=== PATIENT | male | born 1965 | race Caucasian/White ===

== ENCOUNTER 2016-04-24 09:00 | Emergency (ER) | payer OTHER ==
[2016-04-24] MEDS ORDERED: ONDANSETRON HCL/PF 4 MG/ 2ML VIAL IVP ONE (09:37)
[2016-04-24] MEDS ORDERED: 0.9 % SODIUM CHLORIDE 1,000 ML IV ONE (09:38)
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
[2016-04-24 09:53] LABS: BASOPHILS % 0.6 (0.0-1.5); EOSINOPHILS % 2.1 % (0.0-6.8); LYMPHOCYTES # 2.4 # k/uL (0.6-4.0); MEAN CORPUSCULAR HEMOGLOBIN 28.5 pg (28.0-34.0); MONOCYTES # 0.6 # k/uL (0.0-0.9); MONOCYTES % 5.7 % (0.0-11.0); NEUTROPHILS # 7.3 # k/uL (1.4-7.7)
[2016-04-24] MEDS ORDERED: 0.9 % SODIUM CHLORIDE 1,000 ML IV SCH (10:00)
[2016-04-24 10:06] LABS: eGFR (African) > 60; eGFR (Non-African) 57
[2016-04-24] MEDS ORDERED: HYDROmorphone HCL/PF 1 MG/ML DISP.SYRIN IVP ONE (10:07)
[2016-04-24 10:15] LABS: AMPHETAMINE NEGATIVE ng/mL (<1000); BARBITURATES NEGATIVE ng/mL (<300); CANNABINOIDS NON NEGATIVE ng/mL (<50); COCAINE NEGATIVE ng/mL (<150); METHAMPHETAMINE NEGATIVE ng/mL (<1000); METHYLENEDIOXYMETHAMPHETAMINE NEGATIVE ng/mL (<500)
[2016-04-24 11:02] VITALS: BP 159/89
[2016-04-27 10:38] LABS: CANNABINOIDS CONFIRMATION >150 ng/mL (<15)
== END 2016-04-24 10:45 | disposition home or self-care (01) ==
LOC: ED 09:00
DX: G89.29 Other chronic pain (principal); M25.552 Pain in left hip; M25.551 Pain in right hip
CPT/HCPCS: 80053; 80349; 80358; 80377; 85025; J1170; J2405; J7030; 96374; 99282; 99283; G0477; G0482; S1016

== ENCOUNTER 2016-04-30 22:16 | Emergency (ER) | payer OTHER ==
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
[2016-04-30 23:17] LABS: BASOPHILS % 0.4 (0.0-1.5); EOSINOPHILS % 6.1 % (0.0-6.8); LYMPHOCYTES # 2.3 # k/uL (0.6-4.0); MONOCYTES # 0.7 # k/uL (0.0-0.9); MONOCYTES % 7.8 % (0.0-11.0); NEUTROPHILS # 5.6 # k/uL (1.4-7.7)
[2016-04-30 23:22] LABS: eGFR (African) > 60; eGFR (Non-African) > 60
--- NOTE | 2016-05-01 00:03 | Diagnostic Imaging Report ---
Report Submission Date: Apr 30, 2016 11:41:34 PM DAIRY TECHNICIAN Patient ~ Study Name: TACO DUMONT ~ Date: Apr 30, 2016 11:27:24 PM DAIRY TECHNICIAN ~ Modality Type: CR Gender: M ~ Description: CHEST : 67 ~ Institution: [facility] Physician: JULY ESPAÑA ~ ~ ~ ~ Pa and lateral chest Clinical history :short of breath coughing Technique pa and lateral upright Findings: The lung bettencourt are clear. The lung bettencourt are hyperinflated. I see no hilar or mediastinal mass. There is no pleural effusion or lesion of the bony thorax other than thoracic spondylosis. Impression: Hyperinflation No acute infiltrate ~ Electronically signed on Apr 30, 2016 11:41:34 PM DAIRY TECHNICIAN by: Cheng MORGAN
[2016-05-01] MEDS ORDERED: methylPREDNISolone SOD SUCC 125 MG/2 ML VIAL IVP ONE (00:05)
[2016-05-01] MEDS ORDERED: IPRATROPIUM/ALBUTEROL SULFATE 3 ML AMPUL.NEB NEB ONE ×2 (00:05→00:06)
[2016-05-01] MEDS ORDERED: LEVOFLOXACIN 500 MG TABLET PO ONE ×2 (01:45)
[2016-05-01 01:59] VITALS: BP 109/61
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
== END 2016-05-01 01:49 | disposition home or self-care (01) ==
LOC: ED 22:16
DX: J20.9 Acute bronchitis, unspecified (principal)
CPT/HCPCS: 70450; 71020; 80053; 85025; 94640; J2930; 96372; 99283; S1016

== ENCOUNTER 2016-05-05 13:49 | Emergency (ER) | payer OTHER ==
[2016-05-05] MEDS ORDERED: BUDESONIDE 0.5MG/2ML AMPUL.NEB NEB ONE ×2 (13:59→14:06)
[2016-05-05] MEDS ORDERED: IPRATROPIUM/ALBUTEROL SULFATE 3 ML AMPUL.NEB NEB ONE ×2 (13:59→14:06)
[2016-05-05 14:08] LABS: APPEARANCE,URINE Clear (CLEAR); COLOR,URINE Yellow (YELLOW); OCCULT BLOOD,URINE Negative (NEGATIVE); PH URINE 8.5 (5.0 - 8.0); UROBILINOGEN URINE 0.2 Eu (0.2-1.0)
[2016-05-05] MEDS ORDERED: methylPREDNISolone SOD SUCC 125 MG/2 ML VIAL IVP ONE (14:08)
[2016-05-05] MEDS ORDERED: 0.9 % SODIUM CHLORIDE 1,000 ML IV ONE (14:23)
[2016-05-05] MEDS ORDERED: 0.9 % SODIUM CHLORIDE 1,000 ML IV SCH (14:30)
[2016-05-05 14:31] LABS: BASOPHILS % 0.3 (0.0-1.5); EOSINOPHILS % 4.8 % (0.0-6.8); LYMPHOCYTES # 0.8 # k/uL (0.6-4.0); MEAN CORPUSCULAR HEMOGLOBIN 29.8 pg (28.0-34.0); MONOCYTES # 0.5 # k/uL (0.0-0.9); MONOCYTES % 5.6 % (0.0-11.0)
[2016-05-05 14:44] LABS: eGFR (African) > 60; eGFR (Non-African) > 60
--- NOTE | 2016-05-05 15:27 | ED Physician Documentation ---
Dyspnea - HISTORIAN Historian: patient - HPI Stated Complaint: SOA, cough, fever Chief Complaint: Dyspnea Onset: days ago Duration: continues in ED Initiating Event: exposure to smoke Context: recent bronchitis Severity: mild Exacerbated By: exertion Associated Symptoms: productive cough (yellow sputum) Further Comments: no - ROS CONST: no problems EYES/ENT: none GI/: none NEURO/PSYCH: denies: headache MS/SKIN/LYMPH: none - PAST HX Lung Disease: COPD Cardiac Disease: none PE Risk Factors: none Surgeries/Procedures: none Other History: none Immunizations: referred to PCP Allergies/Adverse Reactions: Allergies Allergy/AdvReac Type Severity Reaction Status Date / Time No Known Allergies Allergy Verified 05/05/16 14:10 Home Medications: Ambulatory Orders Medication Instructions Recorded Methadone HCl [Methadone HCl] 10 mg PO BID 04/24/16 Albuterol Sulfate [Ventolin Hfa] 1 puff INH DIRECTED 04/30/16 Levofloxacin [Levaquin] 500 mg PO D #10 tablet 05/01/16 - SOCIAL HX Smoking History: cigarettes Alcohol Use: none Drug Use: marijuana - FAMILY HX Family History: no significant history - VITAL SIGNS Vital Signs: Vital Signs Temp Pulse Resp BP Pulse Ox 99.0 F 117 H 24 163/92 88 L 05/05/16 14:04 05/05/16 14:04 05/05/16 14:04 05/05/16 14:04 05/05/16 14:04 - REVIEWED ASSESSMENTS Nursing Assessment Reviewed: Yes Vitals Reviewed: Yes Progress - Results/Orders Results/Orders: cbc, cmp, ua, cxr, strep, flu a and b ordered - Progress Progress: pt. given 1 liter NS, 125 mg solu medrol, pulmicort 0.5 mg via nebulizer and duoneb via nebulizer in er. Critical Care Note - Critical Care Note Total Time (mins): 0 ED Results Lab/Radiology - Lab Results Lab Results: Lab Results 05/05/16 05/05/16 05/05/16 14:25 14:25 14:25 WBC RBC Hgb Hct MCV MCH MCHC RDW Plt Count Neut % (Auto) Lymph % (Auto) Mccone % (Auto) Eos % (Auto) Baso % (Auto) Neut # Lymph # Mccone # Eos # Baso # Reactive Lymphs % Reactive Lymphs # Sodium 135 mmol/L L mmol/L (136-145) Potassium 4.6 mmol/L mmol/L (3.5-5.0) Chloride 103 mmol/L mmol/L (98-110) Carbon Dioxide 32 mmol/L mmol/L (20-32) BUN 17 mg/dL mg/dL (10-26) Creatinine 1.0 mg/dL mg/dL (0.4-1.5) Estimated Creat Clear 118 Est GFR ( Amer) > 60 (60 - ) Est GFR (Non-Af Amer) > 60 (60 - ) Glucose 111 mg/dL H mg/dL (70-99) Calcium 9.2 mg/dL mg/dL (8.5-10.5) Total Bilirubin 0.3 mg/dL mg/dL (0.2-1.2) AST 18 U/L U/L (0-41) ALT 14 U/L U/L (0-45) Alkaline Phosphatase 94 U/L U/L (46-116) Total Protein 7.7 g/dL g/dL (6.0-8.5) Albumin 4.5 g/dL g/dL (3.0-5.5) Urine Color Urine Appearance Urine pH Ur Specific Eden Urine Protein Urine Ketones Urine Occult Blood Urine Nitrite Urine Bilirubin Urine Urobilinogen Ur Leukocyte Esterase Urine Glucose Influenza Type A Ag Negative (NEGATIVE) Influenza Type B Ag Negative (NEGATIVE) Group A Strep Screen Negative (NEGATIVE) 05/05/16 05/05/16 14:25 14:00 WBC 8.80 K/ul K/ul (4.00-12.00) RBC 5.05 M/ul M/ul (3.90-5.20) Hgb 15.0 g/dL g/dL (12.0-18.0) Hct 46.0 % % (37.0-53.0) MCV 91.1 fl fl (80.0-100.0) MCH 29.8 pg pg (28.0-34.0) MCHC 32.7 g/dL g/dL (30.0-36.0) RDW 13.8 % % (11.3-14.3) Plt Count 173 K/mm3 K/mm3 (130-400) Neut % (Auto) 79.6 % H % (39.0-79.0) Lymph % (Auto) 8.8 % L % (16.0-50.0) Mccone % (Auto) 5.6 % % (0.0-11.0) Eos % (Auto) 4.8 % % (0.0-6.8) Baso % (Auto) 0.3 (0.0-1.5) Neut # 7.0 # k/uL # k/uL (1.4-7.7) Lymph # 0.8 # k/uL # k/uL (0.6-4.0) Mccone # 0.5 # k/uL # k/uL (0.0-0.9) Eos # 0.4 # k/uL # k/uL (0.0-0.6) Baso # 0.0 # k/uL # k/uL (0.0-0.5) Reactive Lymphs % 0.9 % % (0.0-5.0) Reactive Lymphs # 0.1 # k/uL # k/uL (0.0-0.8) Sodium Potassium Chloride Carbon Dioxide BUN Creatinine Estimated Creat Clear Est GFR ( Amer) Est GFR (Non-Af Amer) Glucose Calcium Total Bilirubin AST ALT Alkaline Phosphatase Total Protein Albumin Urine Color Yellow (YELLOW) Urine Appearance Clear (CLEAR) Urine pH 8.5 (5.0 - 8.0) Ur Specific Eden 1.015 (1.010-1.030) Urine Protein Negative mg/dL mg/dL (NEGATIVE) Urine Ketones Negative mg/dL mg/dL (NEGATIVE) Urine Occult Blood Negative (NEGATIVE) Urine Nitrite Negative (NEGATIVE) Urine Bilirubin Negative (NEGATIVE) Urine Urobilinogen 0.2 Eu Eu (0.2-1.0) Ur Leukocyte Esterase Negative (NEGATIVE) Urine Glucose Negative mg/dL mg/dL (NEGATIVE) Influenza Type A Ag Influenza Type B Ag Group A Strep Screen - Radiology Radiology Impressions: cxr neg for pneumonia - Orders Orders: ED Orders Category Date Time Status Place Saline Lock/IV Now Care 05/05/16 14:08 Active CHEST 1 VIEW [RAD] Routine Exams 05/05/16 Ordered CBC/PLATELET/DIFF Routine Lab 05/05/16 14:25 Completed CMP Routine Lab 05/05/16 14:25 Completed GRP A STREP SCREEN Routine Lab 05/05/16 14:25 Completed INFLUENZA A&B Routine Lab 05/05/16 14:25 Completed THROAT CULTURE Routine Lab 05/05/16 14:25 Received URINALYSIS Routine Lab 05/05/16 14:00 Completed 0.9 % Sodium Chloride [Normal Saline] 1,000 ml Med 05/05/16 14:30 Ordered IV .Q1H Budesonide [Pulmicort] Med 05/05/16 13:59 Discontinued 0.5 mg NEB .STK-MED ONE Budesonide [Pulmicort] Med 05/05/16 14:06 Discontinued 0.5 mg NEB 1T ONE Ipratropium/Albuterol Sulfate [Duoneb] Med 05/05/16 13:59 Discontinued 3 ml NEB .STK-MED ONE Ipratropium/Albuterol Sulfate [Duoneb] Med 05/05/16 14:06 Discontinued 3 ml NEB NOW ONE methylPREDNISolone SOD SUCC [Solu-MEDROL] Med 05/05/16 14:08 Discontinued 125 mg IVP NOW ONE Dyspnea Physical Exam - EXAM General Appearance: alert, mild distress EENT: eye inspection normal, ENT inspection normal, pharynx normal, no signs of dehydration, NADIRA, no nystagmus, TM's nml Neck: nml inspection. No: lymphadenopathy Respiratory: no pain on inspiration, speaks full sentences, wheezes. No: retractions, accessory muscle use, rales, rhonchi, stridor, chest wall tenderness CVS: reg. rate & rhythm Abdomen: non-tender, no organomegaly, no distention Skin: color nml, no rash Extremities: non-tender, normal range of motion, no evidence of injury, no edema Neuro/Psych: oriented x3, CN's nml as tested, motor nml, sensation nml, mood/ affect nml Discharge Clincal Impression: COPD exacerbation Home Medications: Ambulatory Orders Methadone HCl [Methadone HCl] 10 mg PO BID 04/24/16 Albuterol Sulfate [Ventolin Hfa] 1 puff INH DIRECTED 04/30/16 Levofloxacin [Levaquin] 500 mg PO D #10 tablet 05/01/16 Comments: Discharged with a nebulizer, Pulmicort 0.5 mg via nebulizer bid, Albuterol 0.083 % via nebulizer q 4 hours, O2 at 2 liters NC, Prednison 60 mg - 0 mg taper over next 6 days. Condition: Stable Disposition: 01 HOME, SELF-CARE Decision to Admit: NO Decision Time: 03:20
[2016-05-05 15:32] VITALS: BP 183/85
--- NOTE | 2016-05-06 07:54 | Diagnostic Imaging Report ---
[facility] [address] [facility] [address] Report Submission Date: May 05, 2016 3:24:50 PM CERTIFIED PROFESSIONAL ERGONOMIST Patient Study Name: TACO DUMONT Date: May 05, 2016 3:03:28 PM CERTIFIED PROFESSIONAL ERGONOMIST Modality Type: CR Gender: M Description: CHEST : 67 Institution: [facility] Physician: CARLEY SERRANO Chest, 1 view. History: Cough. Findings: The heart size is normal. There is mild lingular segment infiltrate present. There is no pleural effusion or pneumothorax identified. Impression: 1. Mild lingular segment filtrate present. Electronically signed on May 05, 2016 3:24:50 PM CERTIFIED PROFESSIONAL ERGONOMIST by: Russel MORGAN
== END 2016-05-05 15:22 | disposition home or self-care (01) ==
LOC: ED 13:49
DX: J44.1 Chronic obstructive pulmonary disease with (acute) exacerbation (principal)
CPT/HCPCS: 71010; 80053; 81002; 85025; 87070; 87400; 87880; J2930; J7030; J7626; 94640; 96360; 96361; 96372; 99283; S1016

== ENCOUNTER 2016-09-21 15:43 | Outpatient (CLI) | payer OTHER ==
[2016-09-21 16:38] LABS: eGFR (African) > 60; eGFR (Non-African) > 60
== END 2016-09-21 15:44 ==
LOC: LAB 15:43
PROVIDERS: ATTEND Family Medicine
DX: R10.9 Unspecified abdominal pain (principal)
CPT/HCPCS: 36415; 80053; 85027

== ENCOUNTER 2017-08-19 09:34 | Emergency (ER) | payer OTHER ==
[2017-08-19 09:56] VITALS: BP 141/91
--- NOTE | 2017-08-19 09:58 | ED Physician Documentation ---
General Adult - HISTORIAN Historian: patient - HPI Chief Complaint: Skin Rash Additional Information: Patient states that he started to have some itching (burnign stinging) in the left posterior chest wall and then developed some bumps. Has been scratching them. Has some anterior chest discomfort along with it. No lesions there. No precipitating or modifying factors noted. Has had chicken pox in the past. No other skin rash noted. Itcing started about 5 days ago. Two days later developed the bumbs. Onset: days ago - ROS CONST: no problems. denies: fever, chills - PAST HX Past History: COPD, hypertension, other (chronic back pain, chronic Hep C,) Other History: other (gout) Surgeries/Procedures: other (partial colectomy, hip surgery) Immunizations: UTD Allergies/Adverse Reactions: Allergies Allergy/AdvReac Type Severity Reaction Status Date / Time No Known Allergies Allergy Verified 08/19/17 09:48 Home Medications: Ambulatory Orders Medication Instructions Recorded Clonazepam [Clonazepam] 1 mg PO QID 08/19/17 Oxycodone HCl [Roxicodone] 15 mg PO QID 08/19/17 - SOCIAL HX Smoking History: greater than 1 pack/day Alcohol Use: none Drug Use: none - FAMILY HX Family History: No - VITAL SIGNS Vital Signs: Vital Signs Temp Pulse Resp BP Pulse Ox 183/85 05/05/16 15:22 - REVIEWED ASSESSMENTS Nursing Assessment Reviewed: Yes Vitals Reviewed: Yes General Adult Physical Exam - PHYSICAL EXAM GENERAL APPEARANCE: mild distress NECK: normal inspection, thyroid normal. No: lymphadenopathy RESPIRATORY: no resp distress, chest non-tender, wheezes (mild expiratory) CVS: reg rate & rhythm, heart sounds normal, equal pulses, no murmur, no gallop SKIN: other (cluster of 10 erythematous bumps with small denuded tops, about 8mm in diameter each. Feww scattered lesion along the later chest wall area on the left) EXTREMITIES: non-tender NEURO: oriented X3, mood/affect nml, cognition normal Discharge Clincal Impression: Shingles Referrals: Presley Dempsey MD [Primary Care Provider] - 2 Days Additional Instructions: You possibly can be contagious as we discussed. Take precautions if around small children. Watch for secondary infection. Rash may take 1-2 weeks to clear. Condition: Stable Disposition: 01 HOME, SELF-CARE Decision to Admit: NO Date of Decison to Admit: 08/19/17 Decision Time: 09:59
== END 2017-08-19 10:07 | disposition home or self-care (01) ==
LOC: ED 09:34
DX: B02.9 Zoster without complications (principal)

== ENCOUNTER 2017-09-25 13:37 | Observation (INO) | payer OTHER ==
[2017-09-25] MEDS ORDERED: 0.9 % SODIUM CHLORIDE 1,000 ML IV ONE ×3 (13:58→16:34)
[2017-09-25] MEDS ORDERED: ONDANSETRON HCL 4 MG TAB.RAPDIS ONE (13:58)
[2017-09-25 14:16] LABS: BASOPHILS % 0.4 (0.0-1.5); EOSINOPHILS % 0.8 % (0.0-6.8); MEAN CORPUSCULAR HEMOGLOBIN 29.4 pg (28.0-34.0); MEAN CORPUSCULAR VOLUME 88.7 fl (80.0-100.0); MONOCYTES % 5.5 % (0.0-11.0); NEUTROPHILS # 10.4 # k/uL (1.4-7.7)
--- NOTE | 2017-09-25 14:22 | ED Physician Documentation ---
General Adult - HISTORIAN Historian: patient - HPI Stated Complaint: nausea, vomiting Chief Complaint: General Adult Additional Information: Nausea and vomiting that began 09/22. Hasn't urinated in more than 24 hours. Drinking Pedialyte, then has retching. No emesis today. No fever. Has intermittent "all over" muscle cramps. Nause improved since Zofran ODT in ER. - ROS CONST: denies: fever - PAST HX Past History: COPD, other (ARF, CRF, hip surgeries and chronic pain) Allergies/Adverse Reactions: Allergies Allergy/AdvReac Type Severity Reaction Status Date / Time No Known Allergies Allergy Verified 09/25/17 15:52 Home Medications: Ambulatory Orders Medication Instructions Recorded Clonazepam [Clonazepam] 1 mg PO BID 08/19/17 Oxycodone HCl [Roxicodone] 15 mg PO QID 08/19/17 Lisinopril [Prinivil] 20 mg PO DAILY 09/25/17 - SOCIAL HX Smoking History: cigarettes - FAMILY HX Family History: No - VITAL SIGNS Vital Signs: Vital Signs Temp Pulse Resp BP Pulse Ox 141/91 08/19/17 10:07 - REVIEWED ASSESSMENTS Nursing Assessment Reviewed: Yes Vitals Reviewed: Yes Progress - Progress Progress: 1802, discussed with Dr. Mtz. Will ad branden pt to obs. for overnight more gradual rehydration. ED Results Lab/Radiology - Lab Results Lab Results: Lab Results 09/25/17 14:10 WBC 13.23 K/ul H K/ul (4.00-12.00) RBC 6.07 M/ul H M/ul (3.90-5.20) Hgb 17.9 g/dL g/dL (12.0-18.0) Hct 53.9 % H % (37.0-53.0) MCV 88.7 fl fl (80.0-100.0) MCH 29.4 pg pg (28.0-34.0) MCHC 33.2 g/dL g/dL (30.0-36.0) RDW 14.0 % % (11.3-14.3) Plt Count 259 K/mm3 K/mm3 (130-400) Neut % (Auto) 78.7 % % (39.0-79.0) Lymph % (Auto) 13.7 % L % (16.0-50.0) [place] % (Auto) 5.5 % % (0.0-11.0) Eos % (Auto) 0.8 % % (0.0-6.8) Baso % (Auto) 0.4 (0.0-1.5) Neut # (Auto) 10.4 # k/uL H # k/uL (1.4-7.7) Lymph # (Auto) 1.8 # k/uL # k/uL (0.6-4.0) [place] # (Auto) 0.7 # k/uL # k/uL (0.0-0.9) Eos # (Auto) 0.1 # k/uL # k/uL (0.0-0.6) Baso # (Auto) 0.1 # k/uL # k/uL (0.0-0.5) Reactive Lymphs % 0.9 % % (0.0-5.0) Reactive Lymphs # 0.1 # k/uL # k/uL (0.0-0.8) - Orders Orders: ED Orders Category Date Time Status Place IV Lock 1T Care 09/25/17 13:58 Active CBC/PLATELET/DIFF Routine Lab 09/25/17 14:10 Completed CMP Routine Lab 09/25/17 14:10 Received LIPASE Stat Lab 09/25/17 14:10 Received URINALYSIS Routine Lab 09/25/17 Ordered 0.9 % Sodium Chloride [Normal Saline] 1,000 ml Med 09/25/17 13:58 Active IV Q1H Ondansetron HCl Rapdis [Zofran Odt] Med 09/25/17 13:58 Discontinued 4 mg .ROUTE .STK-MED ONE General Adult Physical Exam - PHYSICAL EXAM GENERAL APPEARANCE: moderate distress EENT: eye inspection normal, ENT inspection normal, pharynx normal, dry mucous membranes NECK: normal inspection, supple RESPIRATORY: breath sounds normal, rales CVS: reg rate & rhythm ABDOMEN: soft, normal bowel sounds, no distension, non-tender BACK: normal inspection, no CVA tenderness, other (no vertebral tenderness) SKIN: warm/dry, normal color EXTREMITIES: normal range of motion (gait and stance), no evidence of injury NEURO: CN's nml as tested, motor nml, sensation nml, cognition normal Discharge Clincal Impression: Dehydration Acute renal failure (ARF) Qualifiers: Acute renal failure type: unspecified Qualified Code(s): N17.9 - Acute kidney failure, unspecified Condition: Fair Disposition: 09 ADMITTED INPATIENT Decision to Admit: [id number] Decision Time: 18:02
[2017-09-25] MEDS ORDERED: ONDANSETRON HCL 4 MG TAB.RAPDIS PO ONE (14:23)
[2017-09-25 14:29] LABS: eGFR (African) 20; eGFR (Non-African) 16
[2017-09-25] MEDS ORDERED: PROMETHAZINE HCL 25 MG in 0.9 % SODIUM CHLORIDE 50 ML IV ONE (15:04)
[2017-09-25] MEDS ORDERED: PROMETHAZINE HCL 25 MG/ML VIAL ONE (15:11)
[2017-09-25] MEDS ORDERED: 0.9 % SODIUM CHLORIDE 100 ML IV ONE (15:12)
[2017-09-25] MEDS ORDERED: oxyCODONE/ACETAMINOPHEN 5/325 TABLET PO ONE (16:39)
[2017-09-25] MEDS ORDERED: LORazepam 1 MG TABLET PO PRN (19:47)
[2017-09-25] MEDS: 0.9 % SODIUM CHLORIDE 1,000 ML IV SCH (20:38)
[2017-09-25] MEDS: oxyCODONE HCL 5 MG TABLET PO SCH (20:39)
[2017-09-25] MEDS ORDERED: 0.9 % SODIUM CHLORIDE 1,000 ML IV SCH (21:49)
[2017-09-25 23:50] VITALS: BMI 28.8
[2017-09-26] MEDS ORDERED: clonazePAM 0.5 MG TABLET PO ONE ×2 (00:04→09:00)
[2017-09-26] MEDS: oxyCODONE HCL 5 MG TABLET PO SCH ×2 (00:05→06:10)
[2017-09-26] MEDS: clonazePAM 1 MG TABLET PO SCH ×2 (00:05→08:51)
[2017-09-26] MEDS: 0.9 % SODIUM CHLORIDE 1,000 ML IV SCH ×2 (02:40→09:44)
[2017-09-26] MEDS ORDERED: LISINOPRIL 20 MG TABLET PO SCH (09:00)
[2017-09-26 11:05] LABS: eGFR (African) > 60; eGFR (Non-African) > 60
[2017-09-26 11:52] VITALS: BP 127/64
[2017-09-26 14:02] LABS: APPEARANCE,URINE CLEAR (CLEAR); COLOR,URINE AMBER (YELLOW); OCCULT BLOOD,URINE 1+ (NEGATIVE); UROBILINOGEN URINE 0.2 Eu (0.2-1.0)
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
--- NOTE | 2017-09-30 12:06 | Discharge Summary ---
DATE OF ADMISSION: September 25, 2017 DATE OF DISCHARGE: September 26, 2017 DIAGNOSES ON THIS HOSPITALIZATION: 1. Acute renal failure. 2. Dehydration. SUMMARIZATION OF ADMISSION HISTORY AND PHYSICAL: This is a 51-year-old male who [place] and had begun to feel progressively more ill. Two days before admission, he became nauseated and began to have quite a bit of vomiting and was having difficulty keeping fluids down. He came to the emergency room because of continued weakness and nausea and was noted to be in acute renal failure with a BUN of 43 and creatinine of 4.10. After 3 liters of fluids in the ER, his BUN came down to 40 and creatinine came down to 3.0 and he has been on fluids all evening. Unfortunately, they were unable to draw labs on him. We are awaiting for those labs to come back and providing that those continue to improve, he will discharged to home with continuation of his current medications. CONDITION ON DISCHARGE: He is discharged to home in markedly improved condition. DISCHARGE INSTRUCTIONS: Follow up with Dr. Dempsey in 2 weeks. EDDIE
== END 2017-09-26 11:52 | disposition home or self-care (01) ==
LOC: ED 13:37 → INTOOBSV 18:23 → SOUTH 18:23
PROVIDERS: ADMIT Family Medicine; ATTEND Family Medicine
DX: E86.0 Dehydration (principal); N17.9 Acute kidney failure, unspecified
CPT/HCPCS: 80048; 80053; 81002; 83690; 85025; 96360; 96361; 99284; A9270; G0378; J2550; J7030; 99217; G0379; S1016

== ENCOUNTER 2017-10-05 13:44 | Outpatient (CLI) | payer OTHER ==
[2017-10-05 14:34] LABS: eGFR (African) > 60; eGFR (Non-African) > 60
== END 2017-10-05 13:45 ==
LOC: LAB 13:44
PROVIDERS: ATTEND Family Medicine
DX: E86.0 Dehydration (principal)
CPT/HCPCS: 36415; 80048

== ENCOUNTER 2017-10-29 10:20 | Inpatient (IN) | payer OTHER ==
[2017-10-29] MEDS ORDERED: 0.9 % SODIUM CHLORIDE 1,000 ML IV ONE ×3 (10:36→11:16)
[2017-10-29] MEDS ORDERED: fentaNYL CITRATE/PF 100 MCG/ 2ML AMP IVP ONE (10:39)
[2017-10-29 10:47] LABS: BASOPHILS % 0.5 (0.0-1.5); EOSINOPHILS % 1.2 % (0.0-6.8); MEAN CORPUSCULAR HEMOGLOBIN 30.6 pg (28.0-34.0); MEAN CORPUSCULAR VOLUME 90.3 fl (80.0-100.0); MONOCYTES % 3.7 % (0.0-11.0); NEUTROPHILS # 10.6 # k/uL (1.4-7.7)
[2017-10-29] MEDS ORDERED: MORPHINE SULFATE 4 MG/ML PREFILLED SYR IVP ONE (10:54)
[2017-10-29] MEDS ORDERED: LORazepam 2 MG/ML VIAL IVP ONE (10:54)
[2017-10-29 11:03] LABS: eGFR (African) > 60; eGFR (Non-African) 57
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
--- NOTE | 2017-10-29 11:40 | Diagnostic Imaging Report ---
MAEGAN DINERO (LAB AID) - ER [facility] [address] [facility].[address] [address] Report Submission Date: Oct 29, 2017 11:29:56 AM CDT Patient Study Name: TACO DUMONT Date: Oct 29, 2017 11:07:36 AM CDT Modality Type: DX Gender: M Description: CHEST : 67 Institution: [facility] Physician: MAEGAN DINERO (LAB AID) - ER PA and lateral chest Clinical history: Cough. History of COPD. Findings: Examination of the chest in PA and lateral views demonstrates lungs to be hyperinflated but clear. The cardiovascular and mediastinal silhouettes are within normal limits. Monitor leads superimpose the chest. Impression: 1. Hyperinflation. 2. No active disease. Electronically signed on Oct 29, 2017 11:29:56 AM CDT by: Ashok MORGAN
[2017-10-29] MEDS ORDERED: ONDANSETRON HCL/PF 4 MG/ 2ML VIAL ONE (11:55)
[2017-10-29] MEDS ORDERED: ONDANSETRON HCL/PF 4 MG/ 2ML VIAL IVP ONE (11:56)
[2017-10-29] MEDS ORDERED: PROMETHAZINE HCL 25 MG/ML VIAL IM ONE (12:00)
[2017-10-29] MEDS: 0.9 % SODIUM CHLORIDE 1,000 ML IV SCH (14:20)
[2017-10-29 14:24] VITALS: BMI 29.6
--- NOTE | 2017-10-29 16:48 | Diagnostic Imaging Report ---
MAEGAN DINERO (COSMETOLOGIST APPRENTICE) - ER [facility] [address] [facility] [address] [place], [place]. [address] Report Submission Date: Oct 29, 2017 11:51:36 AM CDT Patient Study Name: TACO DUMONT Date: Oct 29, 2017 11:28:39 AM CDT Modality Type: CT\SR Gender: M Description: CT ABD PELVIS W/O CO : 67 Institution: [facility] Physician: MAEGAN DINERO (COSMETOLOGIST APPRENTICE) - ER CT of abdomen and pelvis without contrast Clinical history: Abdominal pain and nausea for 3 days. Technique: CT of the abdomen and pelvis is performed without oral or intravenous administration of contrast. Sagittal and coronal reconstructions were performed by the technologist Findings: Visualized lung bases are clear. There is a small hiatal hernia. The liver and spleen demonstrate normal attenuation without focal defect. There are multiple noncalcified gallstones in the gallbladder. There is no gallbladder wall thickening or pericholecystic fluid. There is no pancreatic or adrenal abnormality. The kidneys are of normal size, shape and position. Appendix is visualized and is within normal limits. Vascular calcification is present in the abdominal aorta without evidence of aneurysm. There is no retroperitoneal mass or significant adenopathy. There is a left hip replacement with extensive metal artifact obscuring portions of the pelvis. Impression: 1. Small hiatal hernia. 2. Vascular calcification. 3. Cholelithiasis. 4. Negative appendix. 5. Left total hip replacement with metal artifact obscuring portions of the pelvis. Electronically signed on Oct 29, 2017 11:51:36 AM CDT by: Ashok MORGAN
[2017-10-29] MEDS ORDERED: oxyCODONE HCL 5 MG TABLET PO SCH (18:00)
[2017-10-29] MEDS ORDERED: ONDANSETRON HCL/PF 4 MG/ 2ML VIAL IVP PRN (18:21)
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
[2017-10-29] MEDS ORDERED: ONDANSETRON HCL 4 MG TAB.RAPDIS PO PRN (19:18)
[2017-10-29] MEDS ORDERED: oxyCODONE HCL 5 MG TABLET PO ONE (19:32)
[2017-10-29] MEDS ORDERED: NICOTINE 14mg PATCH.TD24 TD ONE (19:39)
[2017-10-29] MEDS ORDERED: clonazePAM 1 MG TABLET PO SCH (21:00)
[2017-10-29] MEDS: LORazepam 1 MG TABLET PO SCH (21:37)
[2017-10-30] MEDS: 0.9 % SODIUM CHLORIDE 1,000 ML IV SCH ×2 (00:18→07:53)
[2017-10-30] MEDS: oxyCODONE HCL 5 MG TABLET PO SCH ×2 (00:19→06:00)
[2017-10-30 06:21] LABS: APPEARANCE,URINE CLEAR (CLEAR); COLOR,URINE AMBER (YELLOW)
[2017-10-30 06:22] LABS: OCCULT BLOOD,URINE NEGATIVE (NEGATIVE); PH URINE 5.5 (5.0 - 8.0); UROBILINOGEN URINE 0.2 Eu (0.2-1.0)
[2017-10-30 06:23] LABS: OCCULT BLOOD,URINE NEGATIVE (NEGATIVE); PH URINE 5.5 (5.0 - 8.0); UROBILINOGEN URINE 0.2 Eu (0.2-1.0)
[2017-10-30 07:02] LABS: BASOPHILS % 0.4 (0.0-1.5); EOSINOPHILS % 2.2 % (0.0-6.8); MEAN CORPUSCULAR HEMOGLOBIN 31.1 pg (28.0-34.0); MEAN CORPUSCULAR VOLUME 89.3 fl (80.0-100.0); NEUTROPHILS # 6.7 # k/uL (1.4-7.7)
[2017-10-30 07:13] VITALS: BP 138/84
[2017-10-30 07:29] LABS: eGFR (African) > 60; eGFR (Non-African) > 60
--- NOTE | 2017-10-30 08:04 | Discharge Summary ---
Discharge Summary - Discharge Sumary History of Present Illness: Patient is a 51-year-old white male who stated he is been working out in the heat. Patient felt that he was trying to stay well hydrated. Two days prior to admission patient developed some nausea and vomiting. Over the last 24 to 36 hours patient stated not been able to keep anything down including his medications. Patient states that as soon as she is eating or drinking anything and is coming back up. Patient denied any hematemesis. Yesterday patient developed some diarrhea. Patient denies any hematochezia or melena. Patient has developed some generalized abdominal pain and discomfort. The does not seem to be any modifying factors that the patient can determine. Patient subsequently came to the ED for evaluation. Patient did have a CT scan of the abdomen which did show a small hiatal hernia and some cholelithiasis. However patient did not have any acute changes to his gallbladder. Patient was subsequently admitted to the hospital for evaluation and rehydration. Home Medications: Ambulatory Orders Medication Instructions Recorded Clonazepam 1 mg PO BID 08/19/17 Oxycodone HCl [Roxicodone] 15 mg PO QID 08/19/17 Lisinopril [Prinivil] 20 mg PO DAILY 09/25/17 Allergies/Adverse Reactions: Allergies Allergy/AdvReac Type Severity Reaction Status Date / Time No Known Allergies Allergy Verified 10/29/17 12:33 Discharge Summary: Patient was started on IV fluids of NS. Patient has bee started on Zofran to help with nausea. It is hope that his abdominal pain will improve with rehydration. If it does not will get US of abd to further evaluate cholelythiasis. Patient's labs improved with rehydration. Renal functions returned to normal but patient states that he was still having some pain int he abd area. Patient has a family emergency developed and wanted to be discharged AMA. Patient will be followed up on outpatient. - Final Diagnosis (1) Abdominal pain Problems: Improved. (2) Dehydration Problems: Improved. (3) Acute renal failure (ARF) Problems: Improved. (4) COPD (chronic obstructive pulmonary disease) Problems: stable on home meds (5) Chronic hip pain Problems: stable
[2017-10-30] MEDS ORDERED: NICOTINE 14mg PATCH.TD24 TD SCH (09:00)
[2017-10-30] MEDS: LORazepam 1 MG TABLET PO SCH (09:11)
== END 2017-10-30 08:45 | disposition home or self-care (01) | DRG 641 ==
LOC: ED 10:20 → SOUTH 12:48
PROVIDERS: ADMIT Family Medicine; ATTEND Family Medicine
DX: E86.0 Dehydration (principal); N17.9 Acute kidney failure, unspecified; K80.20 Calculus of gallbladder without cholecystitis without obstruction; G89.29 Other chronic pain; J44.9 Chronic obstructive pulmonary disease, unspecified
CPT/HCPCS: 71046; 74176; 80053; 81002; 85025; A9270; J2060; J2270; J2405; J2550; J3010; J7030; 96360; 96361; 96374; 96375; 99222; 99238; S1016

== ENCOUNTER 2018-01-28 12:57 | Emergency (ER) | payer OTHER ==
--- NOTE | 2018-01-28 13:16 | ED Physician Documentation ---
Lower Extremity Problem - HISTORIAN Historian: patient - HPI Stated Complaint: left leg pain Chief Complaint: Lower Extremity Injury Location of Injury: L knee, L hip Onset: other (chronic issue he states that he is not here for meds but rather to find out what is going on with his leg ) Timing: still present, worse Duration: constant Recent Injury: No Context: other (per spouse he is kneeling on the couch over the arm to use the computer all day) Severity: moderate Quality: pain, swelling. denies: numbness, tingling Exacerbated By: walking, movement Relieved By: nothing Further Comments: yes (He reports he has had increased pain in his left hip/left knee. No injury - he does see the pain management dr and states the pain meds he is on "do not a damn thing" he thinks he needs an MRI to check the structures of the knee possibly. He has not discussed this with Dr Dempsey. He has no temp. No warmth in the leg other additions) - ROS CONST: no problems - PAST HX Past History: chronic back pain Other History: other (Gout, Chron's Disease, Pancreatitis ) Immunizations: referred to PCP Allergies/Adverse Reactions: Allergies Allergy/AdvReac Type Severity Reaction Status Date / Time No Known Allergies Allergy Verified 01/28/18 13:23 Home Medications: Ambulatory Orders Medication Instructions Recorded Clonazepam 1 mg PO TID 08/19/17 Oxycodone HCl [Roxicodone] 15 mg PO QID 08/19/17 Lisinopril [Prinivil] 20 mg PO DAILY 09/25/17 - SOCIAL HX Smoking History: cigarettes Alcohol Use: none Drug Use: none - FAMILY HX Family History: none - VITAL SIGNS Vital Signs: Vital Signs Temp Pulse Resp BP Pulse Ox 98.2 F 87 19 132/93 95 01/28/18 13:13 01/28/18 13:13 01/28/18 13:13 01/28/18 13:13 01/28/18 13:13 - REVIEWED ASSESSMENTS Nursing Assessment Reviewed: Yes Vitals Reviewed: Yes Progress - Progress Progress: 1320: did discuss meds and possible steroid or muscle relaxant - he stated he "wasnt here for more damn meds but see what is wrong" DG Lower Extremity Problem - EXAM General Appearance: moderate distress Hips: right hip: non-tender, left hip: limited range of motion, pain, soft tissue tenderness, bilateral hip: normal inspection, normal range of motion, no evidence of injury, bone tenderness, deformity, N/A: nodules, swelling Legs: left: pain, bilateral: non-tender, normal inspection, normal range of motion, no evidence of injury, abrasions, bone tenderness, N/A: deformity, limited range of motion, swelling Knees: left: pain, soft tissue tenderness, N/A: swelling Neuro/Tendon: normal sensation, normal motor functions EENT: eye inspection normal RESPIRATORY: no resp distress, chest non-tender, breath sounds normal CVS: reg rate & rhythm, heart sounds normal, equal pulses, no murmur JOINT: painful (left knee/leg/hip ) NEURO/PSYCH: oriented X3, CN's nml as tested SKIN: warm/dry, normal color, cyanosis BACK: normal inspection Discharge Clincal Impression: Chronic hip pain Qualifiers: Laterality: left Qualified Code(s): M25.552 - Pain in left hip Referrals: Presley Dempsey MD [Primary Care Provider] - 2 Days Additional Instructions: 1. Follow up with PCP for possible MRI 2. Continue home meds 3. Sit with more pain free position 4. Rest/ Ice/Heat 5. Return to ER for any further concerns Condition: Stable Disposition: 01 HOME, SELF-CARE Decision to Admit: NO Date of Decison to Admit: 01/28/18 Decision Time: 13:25
[2018-01-28 13:35] VITALS: BP 127/64
== END 2018-01-28 13:34 | disposition home or self-care (01) ==
LOC: ED 12:57
DX: M25.552 Pain in left hip (principal)

== ENCOUNTER 2019-03-01 08:09 | Emergency (ER) | payer OTHER ==
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
[2019-03-01] MEDS ORDERED: MORPHINE SULFATE 4 MG/ML VIAL IV ONE (08:23)
[2019-03-01 08:34] LABS: BASOPHILS % 0.3 % (0.0-1.5)
[2019-03-01 08:57] LABS: eGFR (Non-African) > 60
--- NOTE | 2019-03-01 09:06 | Diagnostic Imaging Report ---
PATIENT MR#: [id number] PATIENT PATIENT NAME: TACO DUMONT DATE OF : 1965 REFERRING PHYSICIAN: Nanette Patel EXAM DATE: 03/01/2019 ACCESSION NUMBER: [id number] EXAM DESCRIPTION: CHEST 2VIEW Examination: PA and lateral chest. History: Evaluate lung bettencourt. Comparison exam: 29 October 2017 Findings: PA and lateral views of the chest demonstrates a normal cardiac and mediastinal silhouette. Chronic interstitial changes. No focal infiltrate. No blunting of the costophrenic margins. Osseous structu res are appropriate for age. Impression: Chronic interstitial changes. No acute pulmonary process. Read by: Dr. Julián Dickson Transcribed by: Transcribed Date: Electronically signed by: Dr. Julián Dickson Date signed: 03/01/2019 9:05:05 AM
[2019-03-01 10:25] VITALS: BP 137/77
== END 2019-03-01 10:18 | disposition home or self-care (01) ==
LOC: ED 08:09
DX: G89.4 Chronic pain syndrome (principal); T21.24XA Burn of second degree of lower back, initial encounter; T31.0 Burns involving less than 10% of body surface; X16.XXXA Contact with hot heating appliances, radiators and pipes, initial encounter
CPT/HCPCS: 71046; 80053; 83880; 84484; 85025; 93005; 96374; 99284; J2270

== ENCOUNTER 2019-03-12 09:50 | Outpatient (CLI) | payer OTHER ==
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
== END 2019-03-12 10:50 ==
LOC: OUT 09:50
PROVIDERS: ATTEND Nurse Practitioner Adult Health
DX: M25.552 Pain in left hip (principal); G89.29 Other chronic pain; Z98.890 Other specified postprocedural states
CPT/HCPCS: 99202; G0463

== ENCOUNTER 2019-04-22 09:43 | Outpatient (CLI) | payer OTHER ==
--- NOTE | 2019-04-22 16:26 | Diagnostic Imaging Report ---
PATIENT MR#: [id number] PATIENT PATIENT NAME: PRESLEY DUMONT DATE OF : 1965 REFERRING PHYSICIAN: Presley Dempsey EXAM DATE: 04/22/2019 ACCESSION NUMBER: [id number] EXAM DESCRIPTION: US ABDOMEN COMPLETE CLINICAL HISTORY: Right upper quadrant abdominal pain. COMPARISON: CT abdomen October 29, 2017 TECHNIQUE: Ultrasound of the abdomen was performed. ULTRASOUND ABDOMEN: Liver: Normal 12.9 cm length. No intrahepatic ductal dilation. There is no evidence of cirrhosis or i ntrahepatic mass. Gallbladder: Normally distended and without stones or wall thickening. Negative sonographic Samuels's sign per technologist note. Common bile duct: Nondistended Pancreas: Pancreatic tail poorly visualized due to overlying bowel gas. No pancreatic duct dilation. Spleen: Mild splenomegaly 12.7 cm length. Right kidney: 11.7 x 6.3 x 4.5 cm. No stones or hydronephrosis. Left kidney: 12.4 x 5.9 x 4.5 cm. No stones or hydronephrosis. Aorta: Normal caliber. IVC: Patent. Peritoneum: No free fluid. IMPRESSION: 1. Mild splenomegaly without evidence of hepatomegaly or nodular cirrhosis. 2. Normal gallbladder. Read by: Dr. Jhonny Go Transcribed by: Jhonny Go Transcribed Date: 04/22/2019 4:25:55 PM Electronically signed by: Dr. Jhonny Go Date signed: 04/22/2019 4:25:55 PM
== END 2019-04-22 09:53 ==
LOC: RAD 09:43
PROVIDERS: ATTEND Family Medicine
DX: R10.9 Unspecified abdominal pain (principal)
CPT/HCPCS: 36415; 80053; 85025

== ENCOUNTER 2019-04-23 09:40 | Outpatient (CLI) | payer OTHER ==
--- NOTE | 2019-04-23 13:54 | Diagnostic Imaging Report ---
PATIENT MR#: [id number] PATIENT PATIENT NAME: PRESLEY DUMONT DATE OF : 1965 REFERRING PHYSICIAN: Presley Dempsey EXAM DATE: 04/23/2019 ACCESSION NUMBER: [id number] EXAM DESCRIPTION: CT ABD PELVIS W/ CON CLINICAL HISTORY: RUQ ABD PAIN TECHNIQUE: CT abdomen and pelvis following administration of IV contrast. 90 mL Omnipaque 350. COMPARISON: October 29, 2017. CT ABDOMEN WITH CONTRAST: Lung bases: No lung base infiltrate or effusion. Stomach: Small hiatal hernia noted, with suggestion of distal esophagitis. Liver: No intrahepatic ductal dilation. Gallbladder: Normally distended. Pancreas: No pancreatic duct dilation. Bowel loops: Nondistended. Spleen: Normal size. Adrenals: Normal size. Kidneys: No hydronephrosis. Aorta: Normal caliber. Peritoneum: No free air. CT PELVIS WITH CONTRAST: Hips: Left hip arthroplasty produces beam hardening artifact in the lower pelvis, limiting evaluation . Colon: Nondistended. Appendix: Normal appendix is seen. Bladder: Normally distended. Pelvic organs: Unremarkable. Peritoneum: No fluid. Skeleton: Lumbar spondylosis at L4-5 and L5-S1. IMPRESSION: 1. No acute abdominal findings to explain right sided symptoms. 2. Small hiatal hernia with suggestion of distal esophagitis. Read by: Dr. Jhonny Go Transcribed by: Jhonny Go Transcribed Date: 04/23/2019 1:53:59 PM Electronically signed by: Dr. Jhonny Go Date signed: 04/23/2019 1:53:59 PM
== END 2019-04-23 09:50 ==
LOC: RAD 09:40
PROVIDERS: ATTEND Family Medicine
DX: R10.9 Unspecified abdominal pain (principal)
CPT/HCPCS: 74177; Q9967